=== PATIENT | male | born 1995 | race Caucasian/White ===

== ENCOUNTER 2020-09-28 13:30 | Emergency (ER) | payer SELFPAY ==
--- NOTE | ~2020-09-28 | XR_ITS ---
EXAMINATION: XR foot RT min 3V DATE: 09/28/2020 14:17 INDICATION: Right foot pain, initial encounter TECHNIQUE: Dorsoplantar, lateral, and 2 oblique views of the right foot were obtained. COMPARISON: None. FINDINGS: There is a transverse fracture at the lateral base of the fifth metatarsal. Soft tissue swe lling is seen adjacent to the fracture. Bone alignment is normal. No additional acute osseous finding s are evident. IMPRESSION: 1. Fracture of the lateral base of the fifth metatarsal. Reviewed, dictated and finalized at location A.
[2020-09-28 13:37] VITALS: BP 124/63; PULSE 80; RESP 18; TEMP 36.5; O2SAT 99
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
== END 2020-09-28 14:37 | disposition home or self-care (01) ==
PROVIDERS: Emergency Provider Nurse Practitioner Family
DX: S92.351A Displaced fracture of fifth metatarsal bone, right foot, initial encounter for closed fracture (principal); W05.1XXA Fall from non-moving nonmotorized scooter, initial encounter; J45.909 Unspecified asthma, uncomplicated
CPT/HCPCS: 73630; 99213; G0463